=== PATIENT | male | born 1980 | race African-American/Black ===

== ENCOUNTER 2024-09-20 06:23 | Emergency (ER) | payer MEDICAID ==
[~2024-09-20] VITALS: Ht 180.3 cm; Wt 147.0 kg
[2024-09-20 06:30] VITALS: O2SAT 99
[2024-09-20 07:16] LABS: BASOPHILS % 0.5 % (0.0-2.0); EOSINOPHILS % 3.1 % (0.0-5.0); HEMATOCRIT. 43.6 % (42.0-52.0); HEMOGLOBIN. 14.5 g/dL (14.0-18.0); LYMPHOCYTES % 20.2 % (20.0-50.0); MEAN CORPUSCULAR HEMOGLOBIN 30.8 pg (28.0-32.0); MEAN CORPUSCULAR HGB CONC 33.2 g/dL (31.0-37.0); MEAN CORPUSCULAR VOLUME 92.8 fL (80.0-94.0); MEAN PLATELET VOLUME 9.4 fl (7.4-10.4); MONOCYTES % 7.6 % (2.0-8.0); NEUTROPHILS % 68.6 % (40.0-76.0); PLATELET 203 x1000/uL (130-400); RED BLOOD CELL COUNT 4.69 mill/uL (4.7-6.1); RED CELL DISTRIBUTION WIDTH 13.2 % (11.6-14.6); WHITE BLOOD COUNT 9.3 x1000/uL (4.5-11.0)
[2024-09-20 07:34] LABS: CHLORIDE 106 mEq/L (98-107); POTASSIUM 4.5 mEq/L (3.5-5.1); SODIUM 140 mEq/L (136-145)
[2024-09-20 07:36] LABS: CARBON DIOXIDE 28 mEq/L (21-32)
[2024-09-20 07:40] LABS: D-DIMER 0.2 mg/L FEU (<0.50); PROTHROMBIN TIME 11.1 sec (9.6-11.0)
[2024-09-20 07:41] LABS: GLUCOSE 101 mg/dL (70-105); UREA NITROGEN BLOOD 16 mg/dL (9-23)
[2024-09-20 07:43] LABS: ALANINE AMINOTRANSFERASE 24 IU/L (10-49); ASPARTATE AMINOTRANSFERASE 18 IU/L (<34); BILIRUBIN DIRECT 0.1 mg/dL (<=3.0); BILIRUBIN TOTAL 0.5 mg/dL (0.1-1.0); PROTEIN TOTAL 7.1 g/dL (6.0-8.3)
[2024-09-20] MEDS: MAGNESIUM/ALUMINUM HYDROXIDE/SIMETHICONE 30ML UDC PO STA (07:46)
[2024-09-20] MEDS: ONDANSETRON 4MG ODT PO STA (07:46)
[2024-09-20] MEDS: DICYCLOMINE 10 MG/5 ML ORAL SYR PO STA (07:46)
[2024-09-20 07:49] LABS: TROPONIN I HIGH SENSITIVITY < 4 ng/L (3.0-53)
[2024-09-20 09:27] LABS: TROPONIN I HIGH SENSITIVITY < 4 ng/L (3.0-53)
[2024-09-20] MEDS ORDERED: ONDA4TAB50 PO (10:31)
[2024-09-20] MEDS ORDERED: TOPUD PO (10:31)
[2024-09-20 10:46] VITALS: BP 119/81; PULSE 64; RESP 18; TEMP 36.6; O2SAT 100
== END 2024-09-20 10:48 | disposition home or self-care (01) ==
LOC: ER 06:23
DX: R07.1 Chest pain on breathing (principal); R10.9 Unspecified abdominal pain; R11.2 Nausea with vomiting, unspecified; Z79.899 Other long term (current) drug therapy; Z98.890 Other specified postprocedural states
CPT/HCPCS: 99285; 76705; 71045; 80076; 80048; 83690; 85025; 85379; 85610; 84484; 36415; 93005; Q0162